=== PATIENT | male | born 1985 | race Caucasian/White ===

== ENCOUNTER 2019-07-28 15:26 | Emergency (ER) | payer SELFPAY ==
[2019-07-28] MEDS ORDERED: AMOXicillin 250 MG CAP ONE (16:17)
[2019-07-28] MEDS ORDERED: Ibuprofen 800 MG TAB ONE (16:17)
== END 2019-07-28 16:20 | disposition home or self-care (01) ==
LOC: MADERS 15:26
DX: K04.7 Periapical abscess without sinus (principal); K03.81 Cracked tooth; K02.9 Dental caries, unspecified; F17.210 Nicotine dependence, cigarettes, uncomplicated
CPT/HCPCS: 99283